=== PATIENT | female | born 1955 | race Caucasian/White ===

== ENCOUNTER 2017-03-17 06:16 | Day surgery (SDC) | payer OTHER ==
[~2017-03-17 06:16] MED LIST: LIDOCAINE W/ SODIUM BICARB 0.5 ML SYR ONE; Lactated Ringers 1,000 ML PRIMARY IV ONE; ceFAZolin Inj 2gm (Premix) 50 ML IV ONE
[2017-03-17] MEDS ORDERED: MIDAZOLAM 5 MG/1 ML ONE ×2 (07:18→07:32)
[2017-03-17] MEDS ORDERED: BUPIVACAINE 0.5% W/EPI MPF -30 ML VIAL IV ONE (07:18)
[2017-03-17] MEDS ORDERED: fentaNYL Inj 100 MCG/2 ML VIAL ONE (07:18)
[2017-03-17] MEDS ORDERED: LIDOCAINE 2%/ EPI 1:200,000 - 20 ML VIAL ONE (07:18)
[2017-03-17] MEDS ORDERED: BUPivacaine Inj 0.5% PF (5mg/ml) 10ml vial ONE (07:40)
[2017-03-17] MEDS ORDERED: LIDOCAINE 2% 20 MG/ML - 20 ML VIAL ONE (08:20)
[2017-03-17] MEDS ORDERED: Sodium Chloride 0.9% 1,000 ML ONE (08:38)
--- NOTE | 2017-03-17 08:50 | CRNA.PROCE ---
Nerve Block Documentation - - Safety Measures: Time Out Taken, Site Verified - - Type of Nerve Block Used: Right Popliteal Fossa Block Position for Nerve Block: Prone Moniters Used During Block: EKG, SPO2, NIBP Oxygen Sumpplented: Yes Sedation Used - Enter Amount in Comment Field: Midazolam (mg): Yes (10mg iv Preop Titrated), Fentanyl (mcg): Yes (100mcg iv) Skin Prep Used: ChloroPrep Technique: Nerve Stimulator Nerve Block Needle Used: 80 mm ProBlk II Stimulation Hz: 1.0 Stimulation Staring mA: 1.4 Stimulation Ending mA: 0.6 Local Anesthetic - Enter Amt in Comment Field: 0.5 % Bupivicaine with Epinephrine 1:200,000 (mL): Yes (20ml), 2 % Xylocaine with Epinephrine 1:200, 000 (mL): Yes (20ml)
[2017-03-17] MEDS ORDERED: Lactated Ringers 1,000 ML PRIMARY IV ONE (09:07)
[2017-03-17] MEDS ORDERED: BUPivacaine Liposome/PF (Exparel) Inj 20ml vial INFIL ONE (09:43)
[2017-03-17] MEDS ORDERED: HYDROmorphone 2 MG/1 ML ONE (11:02)
[2017-03-17] MEDS ORDERED: NORMAL SALINE 10 ML SYRINGE FLUSH IVP PRN (11:12)
[2017-03-17] MEDS ORDERED: HYDROmorphone 2 MG/1 ML IVP ONE (11:47)
[2017-03-17] MEDS ORDERED: ENOXAPARIN SODIUM 40 MG/0.4 ML SYRINGE SUBCUT ONE ×2 (11:49→12:00)
[2017-03-17 14:01] VITALS: RESP 20; TEMP 97.2
--- NOTE | 2017-03-17 15:47 | GEN.OPNOTE ---
Operative Report Surgeon: Dr. 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 Postoperative Diagnosis: Same Procedure: Rt Tarsal tunnel release, Hannah plantar fascia micro-fasciotomy, FDL tendon release fourth digit right foot. Estimated Blood Loss (mL): 10 Complications: none Description of Procedure: Patient was wheeled to the operating room in the supine position a well-padded calf tourniquet was placed about the right lower leg, the foot was then prepped scrubbed and draped in the usual aseptic manner. The foot was then prepped scrubbed and draped in the usual aseptic manner. Once general anesthesia was obtained the foot was then esmarched and the ankle tourniquet was inflated. Local anesthesia was administered proximal to the surgery site. Attention was directed to the medial aspect of the foot over the tarsal tunnel , where a linear longitudinal incision approximately 12 cm in length was made incision was deepened using sharp and blunt dissection with care being taken to identify and retract all vital neural and vascular structures the incision was carried down to the level of the laciniate ligament which was transected with tenotomy scissors, it was also noted there is diffuse dense, tight scar tissue applying pressure to the tibial nerve vein and artery around the tarsal tunnel with several pinch points noticed. Distally in the micheal pedis and the fascia around the abductor hallucis muscle there was noted to be several pinch points to the neurovascular bundle that were freed with the tenotomy scissors. The surgery site was then closed with 3-0 Monocryl and 4-0 Nylon. Attention was directed to the plantar surface of the foot where a grid was made over the plantar fascia were it inserts in to the clacaneous. Approximally 12 very small percutaneous incisions were made approximately 5 mm apart with 11 blade the [place] wand was then inserted in each of the incisions abd radiofrequency ablation wand was then inserted through the plantar fascia at each of these small incision sites performing micro-fasciotomy to the plantar fascia near it' s insertion. Attention was then directed to the plantar surface of the fourth digit where a small linear incision less than 1 cm in length was made over the flexor digitorum longus tendon dissection was carried down to the flexor digitorum longus tendon that was then released with a small [place] blade the skin was then reclosed approximating coapted with 4-0 nylon. A sterile dressing consisting of Mastisol, Steri-Strips, 4 x 4 gauze, soft cotton padding and Coban was applied. Exparel consisting of approximately 20 mL was then injected in and about the surgery sites. The patient tolerated the procedure well following a brief period of postoperative monitoring the patient will be sent home with both written and oral postoperative instructions.
--- NOTE | 2017-03-21 09:34 | OPS CRUTCH ---
Diagnosis : Status Post Right Tarsal Tunnel and PF Release Referral Reason: CAM Walker O: The patient was issued a CAM Walker and instructed in its proper use and care. P: No further therapy is indicated at this time. FRANNIED
== END 2017-03-17 12:32 | disposition home or self-care (01) ==
LOC: SDSC 06:16
PROVIDERS: ATTEND Podiatrist Foot & Ankle Surgery
DX: G57.51 Tarsal tunnel syndrome, right lower limb (principal); M72.2 Plantar fascial fibromatosis; M20.5X1 Other deformities of toe(s) (acquired), right foot
CPT/HCPCS: 28008; 28035; 28232; 87641; C9290; J0690; J1650; J2704; J3010; L4360; S0020; J1170; J2001; J2250; J3490; J7030; J7120

== ENCOUNTER 2017-04-21 06:06 | Day surgery (SDC) | payer OTHER ==
[2017-04-21] MEDS ORDERED: IPRATROPIUM/ALBUTEROL SULFATE 3 ML NEB NEB ONE ×2 (06:53→07:01)
[2017-04-21] MEDS ORDERED: MEPIVACAINE HCL/PF 20 MG/1 ML IV ONE (07:09)
[2017-04-21] MEDS ORDERED: MIDAZOLAM 5 MG/1 ML ONE (07:09)
[2017-04-21] MEDS ORDERED: fentaNYL Inj 100 MCG/2 ML VIAL ONE (07:09)
[2017-04-21] MEDS ORDERED: ONDANSETRON 4 MG/2 ML VIAL ONE ×2 (07:09→10:08)
[2017-04-21] MEDS ORDERED: DEXAMETHASONE PF 10 MG/1 ML VIAL ONE (07:10)
[2017-04-21] MEDS ORDERED: BUPIVACAINE 0.5% W/EPI MPF -30 ML VIAL IV ONE (07:10)
--- NOTE | 2017-04-21 07:54 | CRNA.PROCE ---
Nerve Block Documentation - - Safety Measures: Time Out Taken (For post op analgesia. Pt is extremely anxious.), Site Verified - - Type of Nerve Block Used: Left Popliteal Fossa Block (Analgesic block for foot surgery.) Position for Nerve Block: Prone Moniters Used During Block: EKG, SPO2, NIBP Sedation Used - Enter Amount in Comment Field: Midazolam (mg): Yes (5 mg), Fentanyl (mcg): Yes (100) Skin Prep Used: ChloroPrep (Twice) Draped: No Technique: Nerve Stimulator Nerve Block Needle Used: 80 mm ProBlk II Stimulation Hz: 1 Stimulation Staring mA: 1.8 Stimulation Ending mA: 0.48 Local Anesthetic - Enter Amt in Comment Field: 0.5 % Bupivicaine with Epinephrine 1:200,000 (mL): Yes (15 ml in 1.5 ml increments), 2 % Mepivacaine ( mL): Yes (15 ml in 1.5 ml increments) Additives to Nerve Blocks: Dexamethasone (mg): Yes (10)
[2017-04-21] MEDS ORDERED: BUPivacaine Inj 0.5% PF (5mg/ml) 10ml vial ONE (07:59)
[2017-04-21] MEDS ORDERED: BUPivacaine Liposome/PF (Exparel) Inj 20ml vial INFIL ONE (08:00)
[2017-04-21] MEDS ORDERED: ePHEDrine Inj 50 MG/ML AMP ONE (08:16)
[2017-04-21] MEDS ORDERED: PHENYLEPHRINE 10,000 MCG/1 ML VIAL ONE (08:21)
[2017-04-21] MEDS ORDERED: Sodium Chloride 0.9% vial 10 ML ONE (09:34)
[2017-04-21] MEDS ORDERED: NORMAL SALINE 10 ML SYRINGE FLUSH IVP PRN (10:36)
[2017-04-21] MEDS ORDERED: ENOXAPARIN SODIUM 40 MG/0.4 ML SYRINGE SUBCUT ONE ×2 (10:53→11:25)
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
[2017-04-21] MEDS ORDERED: oxyCODONE-ACETAMINOPHEN 5-325 TAB PO ONE ×2 (11:30→11:36)
[2017-04-21] MEDS ORDERED: oxyCODONE/APAP 7.5/325 Tab 1 TAB TAB PO ONE (11:35)
[2017-04-21 13:22] VITALS: TEMP 98
[2017-04-21 13:25] VITALS: RESP 23
--- NOTE | 2017-04-22 10:23 | OPS CRUTCH ---
Diagnosis : Left Tarsal Tunnel Release Plantar Facia Referral Reason: CAM Walker O: The patient was issued a CAM Walker and instructed in its proper use and care. P: No further therapy is indicated at this time. MTDD
== END 2017-04-21 11:40 | disposition home or self-care (01) ==
LOC: SDSC 06:06
PROVIDERS: ATTEND Podiatrist Foot & Ankle Surgery
DX: G57.52 Tarsal tunnel syndrome, left lower limb (principal); M72.2 Plantar fascial fibromatosis; M20.42 Other hammer toe(s) (acquired), left foot
CPT/HCPCS: 28035; 28232; 28899; 94640; A4216; C9290; J0670; J0690; J1650; J2250; J2370; J2405; J2704; J3010; J7620; L4360; S0020; J1100; J3490; J7120